=== PATIENT | female | born 1995 | race African-American/Black ===

== ENCOUNTER 2018-07-07 09:13 | Emergency (ER) | payer SELFPAY ==
--- NOTE | 2018-07-07 10:25 | EDM.PDOC ---
ED HPI GENERAL MEDICAL PROBLEM - General Chief Complaint: Abdominal Pain Stated Complaint: ABDOMINAL AND BACK PAIN Time Seen by Provider: 07/07/18 09:30 Source of Information: Reports: Patient History Limitations: Reports: No Limitations - History of Present Illness INITIAL COMMENTS - FREE TEXT/NARRATIVE: 22-year-old female at approximately 16 weeks by dates and ultrasound performed at outside emergency department at 7 weeks presents with right lower quadrant pain. She states she's had pain for 2 weeks. The pain started gradually. It has been constant. It is not getting worse. It is not related to movement or eating. She hasn't had any injury. No vomiting. No diarrhea. No constipation. No dysuria or hematuria. No abnormal vaginal discharge or vaginal bleeding. No fever. She recently moved here from [place] and has not yet established jolanta care. Lower Abdomen Pain Score (Numeric/FACES): 4 - Related Data Allergies Allergy/AdvReac Type Severity Reaction Status Date / Time No Known Allergies Allergy Verified 07/07/18 09:27 Home Meds: Home Meds . [No Known Home Meds] 07/07/18 [History] Past Medical History - Past Health History Medical/Surgical History: Denies Medical/Surgical History Social & Family History - Tobacco Use Smoking Status *Q: Never Smoker - Caffeine Use Caffeine Use: Reports: None - Recreational Drug Use Recreational Drug Use: No ED ROS GENERAL - Review of Systems Review Of Systems: See Below Constitutional: Denies: Fever HEENT: Reports: No Symptoms Respiratory: Denies: Shortness of Breath Cardiovascular: Denies: Chest Pain Endocrine: Reports: No Symptoms GI/Abdominal: Reports: Abdominal Pain : Reports: Discharge. Denies: Dysuria Musculoskeletal: Reports: No Symptoms Skin: Reports: No Symptoms Neurological: Reports: No Symptoms Psychiatric: Reports: No Symptoms Hematologic/Lymphatic: Reports: No Symptoms Immunologic: Reports: No Symptoms ED EXAM, GI/ABD - Physical Exam Exam: See Below Exam Limited By: No Limitations General Appearance: Alert, WD/WN, No Apparent Distress Eyes: Bilateral: Normal Appearance Ears: Normal External Exam Nose: Normal Inspection Throat/Mouth: Normal Inspection, Normal Oropharynx, Normal Voice Head: Atraumatic, Normocephalic Neck: Normal Inspection, Supple Respiratory/Chest: No Respiratory Distress, Lungs Clear, Normal Breath Sounds, Chest Non-Tender Cardiovascular: Normal Peripheral Pulses, Regular Rate, Rhythm GI/Abdominal Exam: Soft, Other (gravid uterus c/w patient report of at 16 wks ). No: Guarding, Rebound (Female) Exam: Cervical Discharge (small amount, whte ), Other (cervix mildly erythematous). No: Uterine Tenderness, Vaginal Lesions Extremities: Normal Inspection Neurological: Alert, Oriented, Normal Cognition, No Motor/Sensory Deficits Psychiatric: Normal Affect, Normal Mood Skin Exam: Warm, Dry, Intact, Normal Color, No Rash Course - Vital Signs Last Recorded V/S: Last Vital Signs Temp 37.0 C 07/07/18 09:25 Pulse 77 07/07/18 09:25 Resp 16 07/07/18 09:25 BP 105/69 07/07/18 09:25 Pulse Ox 94 L 07/07/18 10:20 - Orders/Labs/Meds Orders: Active Orders 24 hr Category Date Time Status UA W/MICROSCOPIC [URIN] Stat Lab 07/07/18 10:58 Ordered WET PREP [MYC] Stat Lab 07/07/18 10:24 Ordered Labs: Laboratory Tests 07/07/18 07/07/18 07/07/18 Range/Units 10:24 10:44 10:44 WBC 5.66 (3.98-10.04) K/mm3 RBC 4.68 (3.98-5.22) M/mm3 Hgb 10.7 L (11.2-15.7) gm/L Hct 33.2 L (34.1-44.9) % MCV 70.9 L (79.4-94.8) fl MCH 22.9 L (25.6-32.2) pg MCHC 32.2 (32.2-35.5) g/dl RDW Std Deviation 55.7 H (36.4-46.3) fL Plt Count 306 (182-369) K/mm3 MPV 11.0 (9.4-12.3) fl Neut % (Auto) 57.0 (34.0-71.1) % Lymph % (Auto) 34.3 (19.3-51.7) % Sheridan % (Auto) 7.2 (4.7-12.5) % Eos % (Auto) 0.9 (0.7-5.8) Baso % (Auto) 0.4 (0.1-1.2) % Neut # (Auto) 3.23 (1.56-6.13) K/mm3 Lymph # (Auto) 1.94 (1.18-3.74) K/mm3 Sheridan # (Auto) 0.41 H (0.24-0.36) K/mm3 Eos # (Auto) 0.05 (0.04-0.36) K/mm3 Baso # (Auto) 0.02 (0.01-0.08) K/mm3 Manual Slide Review Abnormal smear Sodium 137 (136-145) mEq/L Potassium 3.7 (3.5-5.1) mEq/L Chloride 103 (98-107) mEq/L Carbon Dioxide 23 (21-32) mEq/L Anion Gap 14.7 (5-15) BUN 5 L (7-18) mg/dL Creatinine 0.5 L (0.55-1.02) mg/dL Est Cr Clr Drug Dosing TNP Estimated GFR (MDRD) > 60 (>60) mL/min BUN/Creatinine Ratio 10.0 L (14-18) Glucose 79 (74-106) mg/dL Calcium 8.7 (8.5-10.1) mg/dL Total Bilirubin 0.4 (0.2-1.0) mg/dL AST 21 (15-37) U/L ALT 17 (14-59) U/L Alkaline Phosphatase 57 (46-116) U/L Total Protein 7.2 (6.4-8.2) g/dl Albumin 3.4 (3.4-5.0) g/dl Globulin 3.8 gm/dL Albumin/Globulin Ratio 0.9 L (1-2) Lipase 111 (73-393) U/L Urine Color (Yellow) Urine Appearance (Clear) Urine pH (5.0-8.0) Ur Specific Gracey (1.005-1.030) Urine Protein (Negative) Urine Glucose (UA) (Negative) Urine Ketones (Negative) Urine Occult Blood (Negative) Urine Nitrite (Negative) Urine Bilirubin (Negative) Urine Urobilinogen (0.2-1.0) Ur Leukocyte Esterase (Negative) Urine RBC (0-5) /hpf Urine WBC (0-5) /hpf Ur Epithelial Cells (0-5) /hpf Urine Bacteria (FEW) /hpf Urine Mucus (FEW) /hpf C trachomatis DNA (PCR) Not detected N gonorrhoeae DNA (PCR) Not detected 07/07/18 Range/Units 10:58 WBC (3.98-10.04) K/mm3 RBC (3.98-5.22) M/mm3 Hgb (11.2-15.7) gm/L Hct (34.1-44.9) % MCV (79.4-94.8) fl MCH (25.6-32.2) pg MCHC (32.2-35.5) g/dl RDW Std Deviation (36.4-46.3) fL Plt Count (182-369) K/mm3 MPV (9.4-12.3) fl Neut % (Auto) (34.0-71.1) % Lymph % (Auto) (19.3-51.7) % Sheridan % (Auto) (4.7-12.5) % Eos % (Auto) (0.7-5.8) Baso % (Auto) (0.1-1.2) % Neut # (Auto) (1.56-6.13) K/mm3 Lymph # (Auto) (1.18-3.74) K/mm3 Sheridan # (Auto) (0.24-0.36) K/mm3 Eos # (Auto) (0.04-0.36) K/mm3 Baso # (Auto) (0.01-0.08) K/mm3 Manual Slide Review Sodium (136-145) mEq/L Potassium (3.5-5.1) mEq/L Chloride (98-107) mEq/L Carbon Dioxide (21-32) mEq/L Anion Gap (5-15) BUN (7-18) mg/dL Creatinine (0.55-1.02) mg/dL Est Cr Clr Drug Dosing Estimated GFR (MDRD) (>60) mL/min BUN/Creatinine Ratio (14-18) Glucose (74-106) mg/dL Calcium (8.5-10.1) mg/dL Total Bilirubin (0.2-1.0) mg/dL AST (15-37) U/L ALT (14-59) U/L Alkaline Phosphatase (46-116) U/L Total Protein (6.4-8.2) g/dl Albumin (3.4-5.0) g/dl Globulin gm/dL Albumin/Globulin Ratio (1-2) Lipase (73-393) U/L Urine Color Yellow (Yellow) Urine Appearance Clear (Clear) Urine pH 7.5 (5.0-8.0) Ur Specific Gracey 1.015 (1.005-1.030) Urine Protein Negative (Negative) Urine Glucose (UA) Negative (Negative) Urine Ketones Negative (Negative) Urine Occult Blood Negative (Negative) Urine Nitrite Negative (Negative) Urine Bilirubin Negative (Negative) Urine Urobilinogen 0.2 (0.2-1.0) Ur Leukocyte Esterase Negative (Negative) Urine RBC Not seen (0-5) /hpf Urine WBC 0-5 (0-5) /hpf Ur Epithelial Cells 0-5 (0-5) /hpf Urine Bacteria Few (FEW) /hpf Urine Mucus Not seen (FEW) /hpf C trachomatis DNA (PCR) N gonorrhoeae DNA (PCR) - Re-Assessments/Exams Free Text/Narrative Re-Assessment/Exam: 07/07/18 13:51 Bedside ultrasound of the abdomen shows an intrauterine fetus that has good movement and a heart rate of around 121 40 bpm. Labs are unremarkable. Pelvic exam was benign. Discussed with Dr. Xiong who can see the patient in OB clinic this afternoon. Departure - Departure Time of Disposition: 11:55 Disposition: Home, Self-Care 01 Clinical Impression: Qualifiers: Weeks of gestation: 16 weeks Qualified Code(s): Z3A.16 - 16 weeks gestation of Abdominal pain Qualifiers: Abdominal location: right lower quadrant Qualified Code(s): R10.31 - Right lower quadrant pain - Discharge Information Instructions: Abdominal Pain During , [id number] Referrals: PCP,None [Primary Care Provider] - Forms: ED Department Discharge Additional Instructions: 1. Follow up Dr. Xiong (OB) at this hospital today at 2:30pm 2. Take vitamin daily. It's OK to take acetaminophen (Tylenol) for pain according to bottle directions. 3. Return to the ED as needed for any concerning symptoms such as severe pain, vaginal bleeding - My Orders Last 24 Hours: My Active Orders 07/07/18 10:24 WET PREP [MYC] Stat 07/07/18 10:58 UA W/MICROSCOPIC [URIN] Stat - Assessment/Plan Last 24 Hours: My Active Orders 07/07/18 10:24 WET PREP [MYC] Stat 07/07/18 10:58 UA W/MICROSCOPIC [URIN] Stat
[2018-07-07 12:41] LABS: C. TRACHOMATIS BY PCR NOT DETECTED; N. GONORRHOEAE BY PCR NOT DETECTED
== END 2018-07-07 12:15 | disposition home or self-care (01) ==
LOC: JD.ED 09:13
DX: O99.89 Other specified diseases and conditions complicating pregnancy, childbirth and the puerperium (principal); R10.31 Right lower quadrant pain; Z3A.16 16 weeks gestation of pregnancy
CPT/HCPCS: 36415; 80053; 81001; 83690; 85025; 87210; 87491; 87591; 87808; 99284

== ENCOUNTER 2018-12-28 09:49 | Inpatient (IN) | payer MEDICAID ==
[2018-12-28] MEDS ORDERED: Nalbuphine 20 MG/ML 1 ML Syringe IVPUSH PRN (10:28)
[2018-12-28] MEDS ORDERED: Lidocaine 1% 50 ML MDV INJECT ONE (10:28)
[2018-12-28] MEDS ORDERED: Ondansetron 4 MG/2 ML SDV IVPUSH PRN (10:28)
[2018-12-28] MEDS ORDERED: Ampicillin 2 GM in Sodium Chloride 0.9% 100 ML IV ONE (10:28)
[2018-12-28] MEDS ORDERED: Sodium Chloride 0.9% 10 ML Syringe FLUSH PRN (10:28)
[2018-12-28] MEDS ORDERED: Oxytocin/Lactated Ringers 10 UNIT/1,000 ML BAG IV SCH ×3 (10:30→16:34)
[2018-12-28] MEDS ORDERED: Lactated Ringers 1,000 ML IV SCH ×2 (10:30→11:45)
--- NOTE | 2018-12-28 11:40 | PCM.LDHP ---
L&D History of Present Illness - General Date of Service: 12/28/18 Admit Problem/Dx: Patient Status Order with Admit Dx/Problem 12/28/18 10:04 Patient Status [ADT] Routine 12/28/18 10:28 Patient Status [ADT] Routine Admission Diagnosis/Problem Admission Diagnosis/Problem Normal labor Source of Information: Patient, Significant Other () History Limitations: Reports: Language Barrier (Speaks mostly [place] Creole, translates) - History of Present Illness Introduction:: Marianne Escobedo is a 23 year old at 39 weeks 6 days by 7 week ultrasound ( ALONSO 12/29/2018) who presents for labor check. She states that she had been having regular contractions throughout the evening starting last night around 9 PM and continued into this morning. She states that the contractions are every 10-30 minutes and were getting more painful with each contraction. She states around 7 AM this morning she started to have increased amounts of fluid and vaginal bleeding. She reports good movement. Timing/Duration: Reports: gradual onset, getting worse Location, : Reports: Abdomen (low), Lower back, Pelvic Quality: Reports: Ache, Pressure, Throbbing Severity: Moderate Improves with: Reports: None Worsens with: Reports: None Associated Symptoms: Reports: vaginal bleeding, vaginal fluid, mild amount. Denies: vaginal discharge Present Illness Comments:: Marianne Escobedo is a 23-year-old at 39 weeks 6 days by 7 week ultrasound ( ALONSO 12/29/2018) in active labor with spontaneous rupture membranes. She has had routine care with myself since 15 weeks gestational age. Review of her labs shows O+ blood type with negative antibody screen. She was immune to rubella. Her RPR, hepatitis B surface antigen and HIV tests were all negative. Her hemoglobin electrophoresis was normal and did not show any evidence of sickle cell trait. Her anatomy ultrasound was overall normal and did not show any abnormalities. There was an anterior placenta. Her 1 hour glucose test was normal at 74. Her hematocrit was 31.8 with hemoglobin of 9.9 and platelets of 311 on 10/18/2018. She was started on iron supplementation at that time. Her GBS swab was positive. 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: : 2 Para: 1 Social & Family History - Family History Family Medical History: Noncontributory - Tobacco Use Smoking Status *Q: Never Smoker Second Hand Smoke Exposure: No - Tobacco Core Measures Tobacco Use/Smoking Within Last 30 Days: No Smokeless Tobacco Use in Last 30 Days: No - Caffeine Use Caffeine Use: Reports: None - Alcohol Use Alcohol Use History: No - Recreational Drug Use Recreational Drug Use: No - Living Situation & Occupation Living situation: Reports: , with Spouse H&P Review of Systems - Review of Systems: Review Of Systems: See Below General: Denies: Fever, Chills, Malaise HEENT: Denies: Headaches, Rhinitis, Sinus Congestion, Sore Throat, Visual Changes Pulmonary: Denies: Shortness of Breath, Wheezing, Cough Cardiovascular: Denies: Chest Pain, Palpitations Gastrointestinal: Denies: Abdominal Pain, Constipation, Diarrhea, Nausea, Vomiting Genitourinary: Denies: Dysuria, Frequency, Burning, Pain, Urgency Musculoskeletal: Denies: Back Pain, Joint Pain, Muscle Pain Psychiatric: Denies: Depression, Anxiety L&D Exam - Exam Exam: See Below - Vital Signs Vital Signs: Last Vital Signs Temp 36.5 C 12/28/18 10:04 Pulse 67 12/28/18 10:31 Resp 16 12/28/18 10:04 BP 109/58 L 12/28/18 10:04 Pulse Ox 99 12/28/18 10:04 Weight: 60.781 kg - OB Specific Contraction Duration (sec): 45-60 Contraction Frequency (min): 4-6 Contraction Intensity: Moderate Movement: Active Heart Tones: Present Heart Tones per Min: 125 (+15 x 15 accelerations, occasional early decelerations) Heart Rate (FHR) Variability: Moderate (6-25 bmp) Presentation: Vertex Estimated Weight: 6-6.5 pounds by Aaron - Ayala Score Ayala Score Cervix Position: Midposition Ayala Score Consistency: Medium Ayala Score Effacement: >80% (80%) Ayala Score Dilation: 3-4 cm (3 cm) Ayala Score 's Station: -3 Ayala Score Total: 7 - Exam General: Alert, Oriented HEENT: Conjunctiva Clear, EOMI Neck: Supple, Trachea Midline Lungs: Clear to Auscultation, Normal Respiratory Effort Cardiovascular: Regular Rate, Regular Rhythm GI/Abdominal Exam: Soft, Non-Tender, No Distention, Other (gravid). No: Guarding, Rigid, Rebound Genitourinary: Normal external exam, Other (Significant amount of vaginal fluid consistent with spontaneous rupture of membranes) Extremities: Normal Inspection, No Pedal Edema Skin: Warm, Dry, Intact Psychiatric: Alert, Normal Affect, Normal Mood - Patient Data Lab Results Last 24 hrs: Laboratory Results - last 24 hr 12/28/18 Range/Units 10:37 WBC 8.95 (3.98-10.04) K/mm3 RBC 5.11 (3.98-5.22) M/mm3 Hgb 12.3 (11.2-15.7) gm/L Hct 39.4 (34.1-44.9) % MCV 77.1 L (79.4-94.8) fl MCH 24.1 L (25.6-32.2) pg MCHC 31.2 L (32.2-35.5) g/dl RDW Std Deviation 70.6 H (36.4-46.3) fL Plt Count 218 (182-369) K/mm3 MPV 11.1 (9.4-12.3) fl Neut % (Auto) 67.6 (34.0-71.1) % Lymph % (Auto) 20.1 (19.3-51.7) % [place] % (Auto) 8.4 (4.7-12.5) % Eos % (Auto) 0.7 (0.7-5.8) Baso % (Auto) 0.4 (0.1-1.2) % Neut # (Auto) 6.05 (1.56-6.13) K/mm3 Lymph # (Auto) 1.80 (1.18-3.74) K/mm3 [place] # (Auto) 0.75 H (0.24-0.36) K/mm3 Eos # (Auto) 0.06 (0.04-0.36) K/mm3 Baso # (Auto) 0.04 (0.01-0.08) K/mm3 Manual Slide Review Normal smear Result Diagrams: 12/28/18 10:37 - Problem List (1) 39 weeks gestation of SNOMED Code(s): 92707824 ICD Code: Z3A.39 - 39 WEEKS GESTATION OF Status: Acute Current Visit: Yes (2) Language barrier SNOMED Code(s): 215350401 ICD Code: Z78.9 - OTHER SPECIFIED HEALTH STATUS Status: Acute Current Visit: Yes (3) ancestry requiring population-specific genetic screening SNOMED Code(s): 42722868, 422084656, 376153868 ICD Code: Z13.79 - ENCNTR FOR OTH SCREENING FOR GENETIC AND CHROMSOML ANOMALIES Status: Acute Current Visit: Yes (4) GBS (group B Streptococcus carrier), +RV culture, currently SNOMED Code(s): 6128593973141, 937466903, 0836760505314 ICD Code: O99.820 - STREPTOCOCCUS B CARRIER STATE COMPLICATING Status: Acute Current Visit: Yes Problem List Initiated/Reviewed/Updated: Yes Orders Last 24hrs: Active Orders 24 hr Category Date Time Status Patient Status [ADT] Routine ADT 12/28/18 10:28 Active Activity as Tolerated [RC] PFP Care 12/28/18 10:28 Active Communication Order [RC] ASDIRECTED Care 12/28/18 10:28 Active Communication Order [RC] ASDIRECTED Care 12/28/18 11:32 Ordered Communication Order [RC] ASDIRECTED Care 12/28/18 11:32 Ordered Communication Order [RC] ASDIRECTED Care 12/28/18 11:32 Ordered Heart Tones [RC] ASDIRECTED Care 12/28/18 10:28 Active Non Stress Test [RC] PER UNIT ROUTINE Care 12/28/18 10:04 Active Non Stress Test [RC] PER UNIT ROUTINE Care 12/28/18 10:28 Active Notify Provider [RC] ASDIRECTED Care 12/28/18 11:32 Ordered Notify Provider [RC] PFP Care 12/28/18 10:28 Active Notify Provider [RC] PRN Care 12/28/18 10:28 Active Peripheral IV Care [RC] Q2HR Care 12/28/18 10:28 Active Vaginal Exam [RC] ASDIRECTED Care 12/28/18 11:32 Ordered Vital Signs [RC] PER UNIT ROUTINE Care 12/28/18 10:04 Active Vital Signs [RC] PER UNIT ROUTINE Care 12/28/18 10:28 Active Regular Diet [DIET] Diet 12/28/18 Breakfast Active RAPID PLASMA REAGIN,RPR [CHEM] Routine Lab 12/28/18 10:37 Received TYPE AND SCREEN [BBK] Stat Lab 12/28/18 10:37 Received Ampicillin 1 gm Med 12/28/18 14:30 Active Sodium Chloride 0.9% [Normal Saline] 100 ml IV Q4H Lactated Ringers [Ringers, Lactated] 1,000 ml Med 12/28/18 10:30 Active IV ASDIRECTED Lactated Ringers [Ringers, Lactated] 1,000 ml Med 12/28/18 11:45 Ordered IV ASDIRECTED Nalbuphine [Nubain] Med 12/28/18 10:28 Active 10 mg IVPUSH Q2H PRN Ondansetron [Zofran] Med 12/28/18 10:28 Active 4 mg IVPUSH Q4H PRN Oxytocin/Lactated Ringers [Pitocin in LR 10 Units/1,000 Med 12/28/18 10:30 Active ML] 10 unit in 1,000 ml IV .CONTINUOUS Oxytocin/Lactated Ringers [Pitocin in LR 10 Units/1,000 Med 12/28/18 11:45 Ordered ML] 10 unit in 1,000 ml IV TITRATE Sodium Chloride 0.9% [Saline Flush] Med 12/28/18 10:28 Active 10 ml FLUSH ASDIRECTED PRN Electronic Heart Tones Ext w TOCO [WOMSER] Oth 12/28/18 10:28 Ordered Routine Electronic Heart Tones Internal [WOMSER] Per Unit Oth 12/28/18 10:28 Ordered Routine Peripheral IV Insertion Adult [OM.PC] Routine Oth 12/28/18 10:28 Ordered Resuscitation Status Routine Resus Stat 12/28/18 10:04 Ordered Medication Orders Lactated Ringer's (Ringers, Lactated) 1,000 mls @ 100 mls/hr IV ASDIRECTED CHELSEA Last Admin: 12/28/18 11:08 Dose: 100 mls/hr Oxytocin/Lactated Ringer's (Pitocin In Lr 10 Units/1,000 Ml) 10 unit in 1,000 mls @ 500 mls/hr IV .CONTINUOUS CHELSEA Ampicillin Sodium 1 gm/ Sodium (Chloride) 100 mls @ 200 mls/hr IV Q4H CHELSEA Nalbuphine HCl (Nubain) 10 mg IVPUSH Q2H PRN PRN Reason: pain Ondansetron HCl (Zofran) 4 mg IVPUSH Q4H PRN PRN Reason: Nausea/Vomiting Sodium Chloride (Saline Flush) 10 ml FLUSH ASDIRECTED PRN PRN Reason: Keep Vein Open Assessment/Plan Comment:: Refer to observation for spontaneous rupture of membranes with increasing frequency of contractions. Uncertain timing of rupture of membranes sometime between 7 and 11 AM. Start Pitocin for augmentation of labor due to infrequent contractions Continuous monitoring Place IV and have Lactated Ringer's at 125 ml/hr May have small amounts of regular diet Activity as tolerated May have epidural as desired Plans to breast-feed after delivery Start on ampicillin 2 g now and have 1 g every 4 hours after for GBS prophylaxis Anticipate vaginal delivery unless otherwise indicated Sonu Xiong M.D. 11:46 AM 12/28/2018
[2018-12-28] MEDS ORDERED: Ampicillin 1 GM in Sodium Chloride 0.9% 100 ML IV SCH (14:30)
--- NOTE | 2018-12-28 16:19 | PCM.DEL ---
L & D Note - General Info Date of Service: 12/28/18 Mother's Due Date: 12/29/18 - Delivery Note Labor: Spontaneous, Augmented by Oxytocin Delivery Outcome: Livebirth Infant Delivery Method: Spontaneous Vaginal Delivery-Single Presentation: Left Occiput Anterior (JANE) Nuchal Cord: None Anesthesia Type: None Amniotic Fluid Description: Clear Episiotomy Type: None Laceration: None Placenta: Intact, Spontaneous Cord: 3 Vessels Estimated Blood Loss: 300 Resuscitation Needed: Yes [place]: Bulb Syringe, Stimulated, Warmed, [place] Used, Warmer Used Provider: Sonu Xiong Score 1 min: 8 Score 5 min: 9 Second Stage Interventions: Reports: Pushing Effectively, Pushing, Pulls Own Legs Back Delivery Comments (Free Text/Narrative):: Stage I: Marianne Escobedo was admitted for spontaneous labor and spontaneous rupture membranes. She had clear fluid with rupture membranes. On admission her cervix was dilated to 2 cm. She was GBS positive and was started on ampicillin. She received a total of 2 doses prior to delivery. She was started on Pitocin for augmentation of labor with rupture membranes with infrequent contractions. She progressed to complete and pushing. Stage II: On 12/28/2018 she had a normal vaginal delivery of a live female infant at 1556. Apgars of 8 & 9. Weight of 2900 g (6 lbs 6 oz). Length of 20 inches. There was no nuchal cord. was delivered in JANE position. The cord was doubly clamped and cut by father of the infant. was placed on mother's abdomen initially and then taken to warmer for further resuscitation. Stage III: She had a spontaneous delivery of an intact placenta in [place] presentation. Three vessel cord. She was given pitocin and fundal massage. She had no lacerations. Mom and baby were stable to recovery. EBL of 300 mL. Sonu Xiong MD 4:17 PM 12/28/2018 - General Info Date of Service: 12/28/18 - Patient Data Vitals - Most Recent: Last Vital Signs Temp 36.5 C 12/28/18 10:04 Pulse 67 12/28/18 10:31 Resp 16 12/28/18 10:04 BP 109/58 L 12/28/18 10:04 Pulse Ox 99 12/28/18 10:04 Weight - Most Recent: 60.781 kg I&O - Last 24 Hours: Intake & Output 12/28/18 12/28/18 12/28/18 06:59 14:59 22:59 Intake Total 0 Balance 0 Lab Results Last 24 Hours: Laboratory Results - last 24 hr 12/28/18 12/28/18 Range/Units 10:37 10:37 WBC 8.95 (3.98-10.04) K/mm3 RBC 5.11 (3.98-5.22) M/mm3 Hgb 12.3 (11.2-15.7) gm/L Hct 39.4 (34.1-44.9) % MCV 77.1 L (79.4-94.8) fl MCH 24.1 L (25.6-32.2) pg MCHC 31.2 L (32.2-35.5) g/dl RDW Std Deviation 70.6 H (36.4-46.3) fL Plt Count 218 (182-369) K/mm3 MPV 11.1 (9.4-12.3) fl Neut % (Auto) 67.6 (34.0-71.1) % Lymph % (Auto) 20.1 (19.3-51.7) % [place] % (Auto) 8.4 (4.7-12.5) % Eos % (Auto) 0.7 (0.7-5.8) Baso % (Auto) 0.4 (0.1-1.2) % Neut # (Auto) 6.05 (1.56-6.13) K/mm3 Lymph # (Auto) 1.80 (1.18-3.74) K/mm3 [place] # (Auto) 0.75 H (0.24-0.36) K/mm3 Eos # (Auto) 0.06 (0.04-0.36) K/mm3 Baso # (Auto) 0.04 (0.01-0.08) K/mm3 Manual Slide Review Normal smear Blood Type O POSITIVE Gel Antibody Screen Negative Med Orders - Current: Current Medications Lactated Ringer's (Ringers, Lactated) 1,000 mls @ 100 mls/hr IV ASDIRECTED CHELSEA Last Admin: 12/28/18 11:08 Dose: 100 mls/hr Oxytocin/Lactated Ringer's (Pitocin In Lr 10 Units/1,000 Ml) 10 unit in 1,000 mls @ 500 mls/hr IV .CONTINUOUS CHELSEA Ampicillin Sodium 1 gm/ Sodium (Chloride) 100 mls @ 200 mls/hr IV Q4H CHELSEA Last Admin: 12/28/18 14:27 Dose: 200 mls/hr Lactated Ringer's (Ringers, Lactated) 1,000 mls @ 40 mls/hr IV ASDIRECTED CHELSEA Oxytocin/Lactated Ringer's (Pitocin In Lr 10 Units/1,000 Ml) 10 unit in 1,000 mls @ 12 mls/hr IV TITRATE CHELSEA; Protocol Last Titration: 12/28/18 15:27 Dose: 6 munits/min, 36 mls/hr Nalbuphine HCl (Nubain) 10 mg IVPUSH Q2H PRN PRN Reason: pain Ondansetron HCl (Zofran) 4 mg IVPUSH Q4H PRN PRN Reason: Nausea/Vomiting Sodium Chloride (Saline Flush) 10 ml FLUSH ASDIRECTED PRN PRN Reason: Keep Vein Open Discontinued Medications Ampicillin Sodium 2 gm/ Sodium (Chloride) 100 mls @ 200 mls/hr IV ONETIME ONE Stop: 12/28/18 10:57 Last Admin: 12/28/18 11:09 Dose: 200 mls/hr Lidocaine HCl (Xylocaine 1%) 50 ml INJECT ONETIME ONE Stop: 12/28/18 10:29 - Problem List & Annotations (1) 39 weeks gestation of SNOMED Code(s): 31009301 Code(s): Z3A.39 - 39 WEEKS GESTATION OF Status: Acute Current Visit: Yes (2) Language barrier SNOMED Code(s): 520929637 Code(s): Z78.9 - OTHER SPECIFIED HEALTH STATUS Status: Acute Current Visit: Yes (3) ancestry requiring population-specific genetic screening SNOMED Code(s): 77143493, 968587485, 817747520 Code(s): Z13.79 - ENCNTR FOR OTH SCREENING FOR GENETIC AND CHROMSOML ANOMALIES Status: Acute Current Visit: Yes (4) GBS (group B Streptococcus carrier), +RV culture, currently SNOMED Code(s): 4649433080428, 732163096, 3330012243609 Code(s): O99.820 - STREPTOCOCCUS B CARRIER STATE COMPLICATING Status: Acute Current Visit: Yes (5) Vaginal delivery SNOMED Code(s): 914343970 Code(s): O80 - ENCOUNTER FOR FULL-TERM UNCOMPLICATED DELIVERY Status: Acute Current Visit: Yes - Problem List Review Problem List Initiated/Reviewed/Updated: Yes - My Orders Last 24 Hours: My Active Orders 12/28/18 10:04 Non Stress Test [RC] PER UNIT ROUTINE Vital Signs [RC] PER UNIT ROUTINE Resuscitation Status Routine 12/28/18 10:28 Patient Status [ADT] Routine Activity as Tolerated [RC] PFP Communication Order [RC] ASDIRECTED Heart Tones [RC] ASDIRECTED Non Stress Test [RC] PER UNIT ROUTINE Notify Provider [RC] PFP Notify Provider [RC] PRN Peripheral IV Care [RC] Q2HR Vital Signs [RC] PER UNIT ROUTINE Nalbuphine [Nubain] 10 mg IVPUSH Q2H PRN Ondansetron [Zofran] 4 mg IVPUSH Q4H PRN Sodium Chloride 0.9% [Saline Flush] 10 ml FLUSH ASDIRECTED PRN Electronic Heart Tones Ext w TOCO [WOMSER] Routine Electronic Heart Tones Internal [WOMSER] Per Unit Routine Peripheral IV Insertion Adult [OM.PC] Routine 12/28/18 10:30 Lactated Ringers [Ringers, Lactated] 1,000 ml IV ASDIRECTED Oxytocin/Lactated Ringers [Pitocin in LR 10 Units/1,000 ML] 10 unit in 1,000 ml IV .CONTINUOUS 12/28/18 10:37 RAPID PLASMA REAGIN,RPR [CHEM] Routine 12/28/18 11:32 Communication Order [RC] ASDIRECTED Communication Order [RC] ASDIRECTED Communication Order [RC] ASDIRECTED Notify Provider [RC] ASDIRECTED Vaginal Exam [RC] ASDIRECTED 12/28/18 11:45 Lactated Ringers [Ringers, Lactated] 1,000 ml IV ASDIRECTED Oxytocin/Lactated Ringers [Pitocin in LR 10 Units/1,000 ML] 10 unit in 1,000 ml IV TITRATE 12/28/18 14:30 Ampicillin 1 gm Sodium Chloride 0.9% [Normal Saline] 100 ml IV Q4H 12/28/18 16:10 Patient Status Manage Transfer [TRANSFER] Routine 12/28/18 Breakfast Regular Diet [DIET] - Plan Plan:: Admit to inpatient following normal spontaneous vaginal delivery Continue Pitocin per unit protocol following delivery of placenta and lactated Ringer's until tolerating regular diet Regular diet Vitals per unit routine Ibuprofen and Tylenol for pain control Assist with breast-feeding as needed Continue to monitor lochia Anticipate discharge home on day #1 Sonu Xiong MD 4:17 PM 12/28/2018
[2018-12-28] MEDS ORDERED: Hydrocortisone Acetate 25 MG Supp RECTAL PRN (16:34)
[2018-12-28] MEDS ORDERED: Acetaminophen 325 MG Tab PO PRN (16:34)
[2018-12-28] MEDS ORDERED: Lanolin 100% Cream 7 GM Tube TOP PRN (16:34)
[2018-12-28] MEDS ORDERED: Magnesium Hydroxide 400 MG/5 ML Susp 30 ML Cup PO PRN (16:34)
[2018-12-28] MEDS ORDERED: Benzocaine/Menthol 20%-0.5% Spray 56 GM Canister TOP PRN (16:34)
[2018-12-28] MEDS ORDERED: Docusate Sodium 100 MG Cap PO PRN (16:34)
[2018-12-28] MEDS ORDERED: Witch Hazel Medicated Pads 100/Jar TOP PRN (16:34)
[2018-12-28] MEDS: Ibuprofen 600 MG Tab PO PRN (17:43)
[2018-12-29] MEDS: Ibuprofen 600 MG Tab PO PRN ×2 (04:25→14:48)
--- NOTE | 2018-12-29 08:33 | PCM.SN ---
- Free Text/Narrative Note: Post Progress Note PPD # 1 Subjective: Doing well overall. Ambulating without difficulty. Lochia minimal. Voiding without difficulty. Tolerating regular diet without nausea or vomiting. Pain controlled with oral medications. Breast and bottle feeding with minimal difficulty. Bottle feeding for supplementation. Objective: Vitals: Physical Exam General: Alert and oriented, no acute distress Lungs: Clear to auscultation bilaterally Heart: Regular rate and rhythm Abdomen: Soft, minimal appropriate tenderness, non-distended, fundus midline, nontender, and 1 fingerbreadth below the umbilicus Extremities: No edema ASSESSMENT: 23-year-old female s/p normal vaginal delivery PPD #1, complicated by [place] is positive with receiving 2 doses of ampicillin prior to delivery, language barrier and ancestry with negative sickle cell disease or trait testing PLAN: Doing well Breast and bottle feeding with minimal difficulty. Patient using bottle feeding for supplementation. Assist as needed Lochia minimal. Continue to monitor for appropriate lochia. Continue routine care Anticipate discharge home today Sonu Xiong MD 8:33 AM 12/29/2018
--- NOTE | 2018-12-29 08:41 | PCM.DCSUM1 ---
Discharge Summary - Hospital Course Free Text/Narrative:: Labor: Spontaneous, Augmented by Oxytocin Delivery Outcome: Livebirth Delivery Method: Spontaneous Vaginal Delivery-Single Presentation: Left Occiput Anterior (JANE) Nuchal Cord: None Anesthesia Type: None Amniotic Fluid Description: Clear Episiotomy Type: None Laceration: None Placenta: Intact, Spontaneous Cord: 3 Vessels Estimated Blood Loss: 300 Resuscitation Needed: Yes [place]: Bulb Syringe, Stimulated, Warmed, [place] Used, Warmer Used Provider: Sonu Xiong Score 1 min: 8 Score 5 min: 9 Second Stage Interventions: Reports: Pushing Effectively, Pushing, Pulls Own Legs Back Delivery Comments (Free Text/Narrative):: Stage I: Marianne Escobedo was admitted for spontaneous labor and spontaneous rupture membranes. She had clear fluid with rupture membranes. On admission her cervix was dilated to 2 cm. She was GBS positive and was started on ampicillin. She received a total of 2 doses prior to delivery. She was started on Pitocin for augmentation of labor with rupture membranes with infrequent contractions. She progressed to complete and pushing. Stage II: On 12/28/2018 she had a normal vaginal delivery of a live female at 1556. Apgars of 8 & 9. Weight of 2900 g (6 lbs 6 oz). Length of 20 inches. There was no nuchal cord. Infant was delivered in JANE position. The cord was doubly clamped and cut by father of the infant. Infant was placed on mother's abdomen initially and then taken to warmer for further resuscitation. Stage III: She had a spontaneous delivery of an intact placenta in [place]ovita presentation. Three vessel cord. She was given pitocin and fundal massage. She had no lacerations. Mom and baby were stable to recovery. EBL of 300 mL. HPI Initial Comments: Labor: Spontaneous, Augmented by Oxytocin Delivery Outcome: Livebirth Infant Delivery Method: Spontaneous Vaginal Delivery-Single Presentation: Left Occiput Anterior (JANE) Nuchal Cord: None Anesthesia Type: None Amniotic Fluid Description: Clear Episiotomy Type: None Laceration: None Placenta: Intact, Spontaneous Cord: 3 Vessels Estimated Blood Loss: 300 Resuscitation Needed: Yes [place]: Bulb Syringe, Stimulated, Warmed, A[place] Used, Warmer Used Provider: Sonu Xiong Score 1 min: 8 Score 5 min: 9 Second Stage Interventions: Reports: Pushing Effectively, Pushing, Pulls Own Legs Back Delivery Comments (Free Text/Narrative):: Stage I: Marianne Escobedo was admitted for spontaneous labor and spontaneous rupture membranes. She had clear fluid with rupture membranes. On admission her cervix was dilated to 2 cm. She was GBS positive and was started on ampicillin. She received a total of 2 doses prior to delivery. She was started on Pitocin for augmentation of labor with rupture membranes with infrequent contractions. She progressed to complete and pushing. Stage II: On 12/28/2018 she had a normal vaginal delivery of a live female infant at 1556. Apgars of 8 & 9. Weight of 2900 g (6 lbs 6 oz). Length of 20 inches. There was no nuchal cord. was delivered in JANE position. The cord was doubly clamped and cut by father of the . was placed on mother's abdomen initially and then taken to warmer for further resuscitation. Stage III: She had a spontaneous delivery of an intact placenta in Jovita presentation. Three vessel cord. She was given pitocin and fundal massage. She had no lacerations. Mom and baby were stable to recovery. EBL of 300 mL. Brief History: Labor: Spontaneous, Augmented by Oxytocin. Delivery Outcome: Livebirth. Delivery Method: Spontaneous Vaginal Delivery-Single. Presentation: Left Occiput Anterior (JANE). Nuchal Cord: None. Anesthesia Type : None. Amniotic Fluid Description: Clear. Episiotomy Type: None. Laceration : None. Placenta: Intact, Spontaneous. Cord: 3 Vessels. Estimated Blood Loss : 300. Resuscitation Needed: Yes. : Bulb Syringe, Stimulated, Warmed, Avant Used, Warmer Used. Provider: Sonu Xiong. Score 1 min : 8. Score 5 min: 9. Second Stage Interventions: Reports: Pushing Effectively, Pushing, Pulls Own Legs Back. Delivery Comments (Free Text/ Narrative):: Stage I: Marianne Escobedo was admitted for spontaneous labor and spontaneous rupture membranes. She had clear fluid with rupture membranes. On admission her cervix was dilated to 2 cm. She was GBS positive and was started on ampicillin. She received a total of 2 doses prior to delivery. She was started on Pitocin for augmentation of labor with rupture membranes with infrequent contractions. She progressed to complete and pushing. Stage II: On 12/28/2018 she had a normal vaginal delivery of a live female infant at 1556. Apgars of 8 & 9. Weight of 2900 g (6 lbs 6 oz). Length of 20 inches. There was no nuchal cord. Infant was delivered in JANE position. The cord was doubly clamped and cut by father of the infant. Infant was placed on mother's abdomen initially and then taken to warmer for further resuscitation. Stage III: She had a spontaneous delivery of an intact placenta in Jovita presentation. Three vessel cord. She was given pitocin and fundal massage. She had no lacerations. Mom and baby were stable to recovery. EBL of 300 mL. Diagnosis: Stroke: No - Discharge Data Discharge Date: 12/29/18 Discharge Disposition: Home, Self-Care 01 Condition: Good - Discharge Diagnosis/Problem(s) (1) 39 weeks gestation of SNOMED Code(s): 40413807 ICD Code: Z3A.39 - 39 WEEKS GESTATION OF Status: Acute Current Visit: Yes (2) Language barrier SNOMED Code(s): 807817070 ICD Code: Z78.9 - OTHER SPECIFIED HEALTH STATUS Status: Acute Current Visit: Yes (3) ancestry requiring population-specific genetic screening SNOMED Code(s): 72359487, 664834375, 736500113 ICD Code: Z13.79 - ENCNTR FOR OTH SCREENING FOR GENETIC AND CHROMSOML ANOMALIES Status: Acute Current Visit: Yes (4) GBS (group B Streptococcus carrier), +RV culture, currently SNOMED Code(s): 8026454085089, 750889632, 7063670154868 ICD Code: O99.820 - STREPTOCOCCUS B CARRIER STATE COMPLICATING Status: Acute Current Visit: Yes (5) Vaginal delivery SNOMED Code(s): 473944283 ICD Code: O80 - ENCOUNTER FOR FULL-TERM UNCOMPLICATED DELIVERY Status: Acute Current Visit: Yes - Patient Summary/Data Operative Procedure(s) Performed: None Complications: None Consults: None Hospital Course: Marianne Escobedo was admitted for spontaneous labor with spontaneous rupture membranes at some point between 7 and 11 AM. On rupture of membranes she had clear fluid. On admission her cervix was dilated to 2 cm. She was GBS positive and was started on ampicillin for prophylaxis. She received a total of 2 doses prior to delivery. She was given pitocin for augmentation. She progressed to complete and began pushing. On 12/28/2018 she had a normal vaginal delivery of a live female at 1556. Apgars of 8 and 9. Weight of 2900 g (6 lbs. 6 oz.). Her course was uneventful. Her pain was well controlled and she had minimal lochia. She was ambulating, tolerating a regular diet and voiding normally. She was breast and bottle feeding with bottle feeding for supplementation. She was afebrile and her hematocrit was 39.4 on admission. She desired to be discharged home on the afternoon of PPD #1. Her blood type is O+. - Patient Instructions Diet: Regular Diet as Tolerated Activity: Apply Ice, As Tolerated Activity, Other: Nothing in the vagina for 6 weeks Driving: May Drive Today Showering/Bathing: May Shower Notify Provider of: Fever, Increased Pain, Swelling and Redness, Drainage, Nausea and/or Vomiting Other/Special Instructions: Please contact your physician's office if you have heavy vaginal bleeding enough to soak a pad in less than an hour for several hours. Monitor for any signs of an infection in the breasts with severe pain or redness of the breast. - Discharge Plan *PRESCRIPTION DRUG MONITORING PROGRAM REVIEWED*: Not Applicable *COPY OF PRESCRIPTION DRUG MONITORING REPORT IN PATIENT SARAH: Not Applicable Home Medications: Home Meds PNV95/Ferrous Fumarate/FA [ Tablet] 1 each PO DAILY 12/28/18 [History] Acetaminophen [Tylenol] 650 mg PO Q6H PRN tablet 12/29/18 [Rx] Benzocaine/Menthol [Dermoplast Pain Relief [place]] 1 spray TOP ASDIRECTED PRN canister 12/29/18 [Rx] Docusate Sodium [Colace] 100 mg PO BID PRN cap 12/29/18 [Rx] Hydrocortisone Acetate [Anucort-HC] 25 mg RECTAL BID PRN supp 12/29/18 [Rx] Ibuprofen [Motrin] 600 mg PO Q6H PRN tablet 12/29/18 [Rx] Lanolin [Lansinoh HPA] 1 applic TOP ASDIRECTED PRN tube 12/29/18 [Rx] Witch Lien [Tucks] 1 pad TOP ASDIRECTED PRN pad 12/29/18 [Rx] Patient Handouts: Vaginal Delivery, Care After Referrals: Sonu Xiong MD [Primary Care Provider] - (Follow-up in 1-2 weeks for routine visit or earlier as needed.) - Discharge Summary/Plan Comment DC Time >30 min.: No - Patient Data Vitals - Most Recent: Last Vital Signs Temp 36.6 C 12/29/18 04:20 Pulse 64 12/29/18 04:20 Resp 16 12/29/18 04:20 BP 97/63 12/29/18 04:20 Pulse Ox 100 12/29/18 04:20 Weight - Most Recent: 60.781 kg I&O - Last 24 hours: Intake & Output 12/28/18 12/29/18 12/29/18 22:59 06:59 14:59 Intake Total 240 Balance 240 Lab Results - Last 24 hrs: Laboratory Results - last 24 hr 12/28/18 12/28/18 12/28/18 Range/Units 10:37 10:37 10:37 WBC 8.95 (3.98-10.04) K/mm3 RBC 5.11 (3.98-5.22) M/mm3 Hgb 12.3 (11.2-15.7) gm/L Hct 39.4 (34.1-44.9) % MCV 77.1 L (79.4-94.8) fl MCH 24.1 L (25.6-32.2) pg MCHC 31.2 L (32.2-35.5) g/dl RDW Std Deviation 70.6 H (36.4-46.3) fL Plt Count 218 (182-369) K/mm3 MPV 11.1 (9.4-12.3) fl Neut % (Auto) 67.6 (34.0-71.1) % Lymph % (Auto) 20.1 (19.3-51.7) % [place] % (Auto) 8.4 (4.7-12.5) % Eos % (Auto) 0.7 (0.7-5.8) Baso % (Auto) 0.4 (0.1-1.2) % Neut # (Auto) 6.05 (1.56-6.13) K/mm3 Lymph # (Auto) 1.80 (1.18-3.74) K/mm3 [place] # (Auto) 0.75 H (0.24-0.36) K/mm3 Eos # (Auto) 0.06 (0.04-0.36) K/mm3 Baso # (Auto) 0.04 (0.01-0.08) K/mm3 Manual Slide Review Normal smear RPR Non-reactive (NONREACTIVE) Blood Type O POSITIVE Gel Antibody Screen Negative Med Orders - Current: Current Medications Acetaminophen (Tylenol) 650 mg PO Q6H PRN PRN Reason: mild pain or fever Last Admin: 12/28/18 21:26 Dose: 650 mg Benzocaine/Menthol (Dermoplast Pain Relief [place]) 0 gm TOP ASDIRECTED PRN PRN Reason: Perineal Comfort Measure Docusate Sodium (Colace) 100 mg PO BID PRN PRN Reason: Constipation Emollient Ointment (Lansinoh Hpa) 0 gm TOP ASDIRECTED PRN PRN Reason: Sore Nipples Hydrocortisone Acetate (Anucort-Hc) 25 mg RECTAL BID PRN PRN Reason: Hemorrhoid pain Oxytocin/Lactated Ringer's (Pitocin In Lr 10 Units/1,000 Ml) 10 unit in 1,000 mls @ 100 mls/hr IV TITRATE CHELSEA; Protocol Ibuprofen (Motrin) 600 mg PO Q6H PRN PRN Reason: Mild pain or fever Last Admin: 12/29/18 04:25 Dose: 600 mg Magnesium Hydroxide (Milk Of Magnesia) 30 ml PO BEDTIME PRN PRN Reason: Constipation Prenat Multivit/[place]/Iron/Folic Ac ( Plus Iron) 1 each PO DAILY [facility] Greg Emmanuel ([place]itt[place]) 1 pad TOP ASDIRECTED PRN PRN Reason: Hemorrhoid pain Discontinued Medications Ampicillin Sodium 2 gm/ Sodium (Chloride) 100 mls @ 200 mls/hr IV ONETIME ONE Stop: 12/28/18 10:57 Last Admin: 12/28/18 11:09 Dose: 200 mls/hr Lactated Ringer's (Ringers, Lactated) 1,000 mls @ 100 mls/hr IV ASDIRECTED CHELSEA Last Admin: 12/28/18 11:08 Dose: 100 mls/hr Oxytocin/Lactated Ringer's (Pitocin In Lr 10 Units/1,000 Ml) 10 unit in 1,000 mls @ 500 mls/hr IV .CONTINUOUS CHELSEA Ampicillin Sodium 1 gm/ Sodium (Chloride) 100 mls @ 200 mls/hr IV Q4H CHELSEA Last Admin: 12/28/18 14:27 Dose: 200 mls/hr Lactated Ringer's (Ringers, Lactated) 1,000 mls @ 40 mls/hr IV ASDIRECTED CHEL[place] Oxytocin/Lactated Ringer's (Pitocin In Lr 10 Units/1,000 Ml) 10 unit in 1,000 mls @ 12 mls/hr IV TITRATE CHELSEA; Protocol Last Titration: 12/28/18 15:27 Dose: 6 munits/min, 36 mls/hr Lidocaine HCl (Xylocaine 1%) 50 ml INJECT ONETIME ONE Stop: 12/28/18 10:29 Nalbuphine HCl (Nubain) 10 mg IVPUSH Q2H PRN PRN Reason: pain Ondansetron HCl (Zofran) 4 mg IVPUSH Q4H PRN PRN Reason: Nausea/Vomiting Sodium Chloride (Saline Flush) 10 ml FLUSH ASDIRECTED PRN PRN Reason: Keep Vein Open
[2018-12-29] MEDS ORDERED: Prenatal Multivitamin with Calcium/Folic Acid/Iron Tab PO SCH (09:00)
== END 2018-12-29 18:30 | disposition home or self-care (01) | DRG 807 ==
LOC: JD.OBCHECK 09:49 → JD.OB 09:52 → JD.OBCHECK 10:28 → OBSVTOIN 15:56 → JD.OB 16:00
PROVIDERS: ADMIT Obstetrics & Gynecology; ATTEND Obstetrics & Gynecology
PROC: 10E0XZZ Delivery of Products of Conception, External Approach (ICD-10-PCS; principal; 2018-12-28)
DX: O99.824 Streptococcus B carrier state complicating childbirth (principal); Z37.0 Single live birth; Z3A.39 39 weeks gestation of pregnancy
CPT/HCPCS: 36415; 59025; 59409; 85025; 86592; 86850; 86900; 86901; A9270-GY; J0290; J2590; J7030; J7120